=== PATIENT | male | born 1935 | race Caucasian/White ===

== ENCOUNTER 2022-06-06 08:00 | Day surgery (SDC) | payer MEDICARE, BC ==
[~2022-06-06] VITALS: Ht 177.8 cm; Wt 82.1 kg
[2022-06-06 08:35] VITALS: BP 160/109
[2022-06-06] MEDS ORDERED: sodium bicarbonate (8.4%) inj. 150 ML in dextrose 5%-water 1,000 ML IV ONE (08:50)
[2022-06-06] MEDS ORDERED: ROSU40TA22 PO (09:14)
[2022-06-06] MEDS ORDERED: ASPI81TA52 PO (09:14)
[2022-06-06] MEDS ORDERED: METO-395 PO (09:14)
[2022-06-06] MEDS ORDERED: DOCO1CAP11 (09:14)
[2022-06-06] MEDS ORDERED: Vitamin A and D (09:14)
[2022-06-06] MEDS ORDERED: GABA300T25 PO (09:14)
[2022-06-06] MEDS ORDERED: EZET10TA48 PO (09:14)
[2022-06-06] MEDS ORDERED: iohexol 350MG/ML 100ml bottle IV ONE (10:13)
[2022-06-06 10:27] VITALS: BP 144/71
[2022-06-06 12:36] VITALS: BP 130/73
--- NOTE | 2022-06-06 13:40 | NUR ---
Brooke. call from Bisi from [facility] and she gave me results from CT and stated that she tried to get a hold of Dr. Guzman and was not able to. I called ER spoke to Deena alba RN and said that we can put pt into to Bed 2. Transferred pt to ER bed 2 with and friends at bedside. Gave pt info. to IJEOMA Dooley and gave bedside report.
--- NOTE | 2022-06-06 14:00 | NUR ---
VSS, pt is in no distress at this time, pt's and friends at pt's bedside and IJEOMA Dooley present in ER room 2.
== END 2022-06-06 14:00 | disposition critical access hospital, planned readmission (94) ==
LOC: SSTAY O 08:00 → EDSTATUS 09:00 → SSTAY O 14:00
PROVIDERS: ATTEND Internal Medicine Cardiovascular Disease
DX: I71.43 Infrarenal abdominal aortic aneurysm, without rupture (principal); K57.30 Diverticulosis of large intestine without perforation or abscess without bleeding; K40.90 Unilateral inguinal hernia, without obstruction or gangrene, not specified as recurrent; I70.203 Unspecified atherosclerosis of native arteries of extremities, bilateral legs; R16.1 Splenomegaly, not elsewhere classified; K80.20 Calculus of gallbladder without cholecystitis without obstruction; K44.9 Diaphragmatic hernia without obstruction or gangrene; Z79.899 Other long term (current) drug therapy; Z98.890 Other specified postprocedural states
CPT/HCPCS: 75635; J3490; J7030; J7070; Q9967

== ENCOUNTER 2022-06-06 13:58 | Emergency (ER) | payer MEDICARE, BC ==
[~2022-06-06] VITALS: Ht 172.7 cm; Wt 81.8 kg
[~2022-06-06 13:58] MED LIST: ASPI81TA52 PO; DOCO1CAP11; EZET10TA48 PO; GABA300T25 PO; METO-395 PO; ROSU40TA22 PO; Vitamin A and D
[2022-06-06 14:52] LABS: BASOPHILS % (AUTO) 0.5 % (0-1); EOSINOPHILS # (AUTO) 0.1 X10'3 (0-0.9); EOSINOPHILS % (AUTO) 2.2 % (0-6); HEMATOCRIT 42.6 % (42.0-52.0); HEMOGLOBIN 14.5 g/dl (14.0-17.9); LYMPHOCYTES # (AUTO) 1.7 X10'3 (1.1-4.8); LYMPHOCYTES % (AUTO) 34.4 % (21-51); MEAN CORPUSCULAR HEMOGLOBIN 28.9 PG (27.0-31.0); MEAN CORPUSCULAR VOLUME 84.8 FL (78-98); MEAN PLATELET VOLUME 7.4 FL (7.4-10.4); MONOCYTES # (AUTO) 0.7 X10'3 (0-0.9); MONOCYTES % (AUTO) 13.4 % (2-12); NEUTROPHILS # (AUTO) 2.5 X10'3 (1.8-7.7); NEUTROPHILS % (AUTO) 49.5 % (42-75); PLATELET COUNT 139 X10'3 (140-440); RED BLOOD COUNT 5.03 X10'6 (4.70-6.10); RED CELL DISTRIBUTION WIDTH 14.3 % (11.5-14.5); WHITE BLOOD COUNT 5.1 X10'3 (4.5-11.0)
[2022-06-06 15:12] LABS: ALANINE AMINOTRANSFERASE 25 U/L (12-78); ALBUMIN 3.8 G/DL (3.4-5.0); ALBUMIN/GLOBULIN RATIO 1.3 (1.1-1.5); ALKALINE PHOSPHATASE 71 IU/L (46-116); ANION GAP 11 (8-16); ASPARTATE AMINO TRANSFERASE 21 U/L (10-37); BILIRUBIN,TOTAL 0.8 MG/DL (0.1-1.0); BLOOD UREA NITROGEN 12 MG/DL (7-18); BUN/CREATININE RATIO 14.6 (5.4-32.0); CALCIUM 9.1 MG/DL (8.5-10.1); CHLORIDE 104 MMOL/L (99-107); CREATININE 0.82 MG/DL (0.60-1.10); GLUCOSE 91 MG/DL (70-104); POTASSIUM 3.9 MMOL/L (3.5-5.1); SODIUM 140 MMOL/L (135-145); TOTAL CARBON DIOXIDE 24.9 MMOL/L (24-32); TOTAL PROTEIN 6.7 G/DL (6.4-8.2); eGFR 89 ML/MIN
[2022-06-06 15:40] VITALS: BP 156/91
== END 2022-06-06 15:54 | disposition home or self-care (01) ==
LOC: ER 13:58
DX: I71.40 Abdominal aortic aneurysm, without rupture, unspecified (principal); I10 Essential (primary) hypertension; I25.10 Atherosclerotic heart disease of native coronary artery without angina pectoris; E78.00 Pure hypercholesterolemia, unspecified; Z98.890 Other specified postprocedural states; Z72.89 Other problems related to lifestyle; Z79.82 Long term (current) use of aspirin; Z79.899 Other long term (current) drug therapy
CPT/HCPCS: 36415; 71045; 80053; 84484; 85025; 99285

== ENCOUNTER 2022-07-07 08:00 | Inpatient (IN) | payer MEDICARE, BC ==
[2022-07-04 11:15] LABS: BASOPHILS % (AUTO) 0.6 % (0-1); EOSINOPHILS # (AUTO) 0.1 X10'3 (0-0.9); EOSINOPHILS % (AUTO) 2.4 % (0-6); LYMPHOCYTES # (AUTO) 1.3 X10'3 (1.1-4.8); LYMPHOCYTES % (AUTO) 26.2 % (21-51); MEAN CORPUSCULAR HEMOGLOBIN 29.4 PG (27.0-31.0); MEAN CORPUSCULAR HGB CONC 34.6 g/dL (33.0-36.5); MEAN CORPUSCULAR VOLUME 84.8 FL (78-98); MEAN PLATELET VOLUME 7.7 FL (7.4-10.4); MONOCYTES # (AUTO) 0.6 X10'3 (0-0.9); MONOCYTES % (AUTO) 12.3 % (2-12); NEUTROPHILS # (AUTO) 2.9 X10'3 (1.8-7.7); NEUTROPHILS % (AUTO) 58.5 % (42-75); PRE OP HEMATOCRIT 39.6 % (42.0-52.0); PRE OP HEMOGLOBIN 13.7 g/dL (14.0-17.9); PRE OP PLATELET COUNT 119 X10'3 (140-440); RED BLOOD COUNT 4.67 X10'6 (4.70-6.10); RED CELL DISTRIBUTION WIDTH 14.5 % (11.5-14.5)
[2022-07-04 11:25] LABS: PRE OP INR 1.2 INR; PRE OP PROTIME 11.9 SECONDS (9.0-12.0)
[2022-07-04 11:26] LABS: ALBUMIN 3.7 G/DL (3.4-5.0); ALBUMIN/GLOBULIN RATIO 1.4 (1.1-1.5); ALKALINE PHOSPHATASE 67 IU/L (46-116); BLOOD UREA NITROGEN 13 MG/DL (7-18); BUN/CREATININE RATIO 14.8 (5.4-32.0); CALCIUM 8.9 MG/DL (8.5-10.1); CHLORIDE 103 MMOL/L (99-107); CREATININE 0.88 MG/DL (0.60-1.10); PRE OP ALT 28 U/L (30-65); PRE OP ANION GAP 5 (8-16); PRE OP AST 26 U/L (10-37); PRE OP BILIRUB, TOTAL 0.9 MG/DL (0.0-1.0); PRE OP GLUCOSE 93 MG/DL (70-104); PRE OP POTASSIUM 4.3 MMOL/L (3.4-5.1); PRE OP SODIUM 136 MMOL/L (135-145); TOTAL CARBON DIOXIDE 27.7 MMOL/L (24-32); TOTAL PROTEIN 6.3 G/DL (6.4-8.2); eGFR 82 ML/MIN
[2022-07-07] VITALS (26 sets, daily range): BP systolic 114–221; BP diastolic 62–131
[~2022-07-07] VITALS: Ht 177.8 cm; Wt 79.1 kg
[~2022-07-07 08:00] MED LIST changes: +CHOL100017 PO; +DOCUMENT DATE & TIME OF BETA-BLOCKER PO ONE; -Vitamin A and D; +ceFAZolin inj. 2,000 MG in dextrose 5%-water 100 ML IV ONE; +famotidine 20mg tablet PO ONE; +metoprolol tartrate 12.5mg (1/2 tablet) PO ONE; +ringers solution, lacted 1,000 ML IV SCH
[2022-07-07] MEDS ORDERED: iohexol 350MG/ML 100ml bottle IV ONE (08:17)
[2022-07-07] MEDS ORDERED: heparin 10,000 units/1 ML INJ ONE (13:35)
[2022-07-07] MEDS ORDERED: midazolam 1 mg/ML 2ml injection ONE (13:44)
[2022-07-07] MEDS ORDERED: fentaNYL/PF 50MCG/1 ML 2ML syringe ONE ×2 (13:44→16:03)
[2022-07-07] MEDS ORDERED: rocuronium 10mg/ml inj IV ONE (13:44)
[2022-07-07] MEDS ORDERED: propofol inj 20 ML IV ONE (13:44)
[2022-07-07] MEDS ORDERED: ondansetron/PF 4mg/2ml inj IV PRN ×2 (14:10→18:20)
[2022-07-07] MEDS ORDERED: meperidine/PF 25mg/ml syringe IV PRN ×3 (14:10)
[2022-07-07] MEDS ORDERED: proCHLORperazine 10 MG/2 ml inj IV PRN (14:10)
[2022-07-07] MEDS ORDERED: ringers solution, lacted 1,000 ML IV SCH (14:10)
[2022-07-07] MEDS ORDERED: dexamethasone sod phosphate 4mg/ml inj. ONE (14:55)
[2022-07-07] MEDS: iohexol 300 MG/1 ML 50ml polymer ONE ×2 (14:58→17:54)
[2022-07-07] MEDS ORDERED: iohexol 300 MG/1 ML 50ml polymer ONE (15:00)
[2022-07-07] MEDS ORDERED: ondansetron/PF 4mg/2ml inj ONE (17:48)
[2022-07-07] MEDS ORDERED: labetalol 20mg/4ml (5mg/ml) syringe IV ONE (17:48)
--- NOTE | 2022-07-07 18:15 | NUR ---
PT ARRIVED TO VIA BED ACCOMPANIED BY DR. LAWSON-ANESTHESIA REPORT GIVEN, PT CHITINA, AWAKE AND TRYING TO MOVE AROUND IN BED, ART LINE AND BP DIFFICULT TO GET ACCURATE READING, FEMSTOP TO LEFT GT
[2022-07-07] MEDS: morphine 2 MG/ML inj. syringe IV PRN ×2 (18:16→23:03)
--- NOTE | 2022-07-07 18:16 | NUR ---
CONT. FEMSTOP TO LEFT GROIN-NO BLEEDING NOTED PRESSURE AT 55, NO PALPABLE PULSE IN FOOT, BLE COLD AND MOTTLED COLOR NOTED FROM WAIST DOWN WITH NOTED INCREASE BRUISING TO LEFT SIDE AROUND FEMSTOP, WITH 3 NURSES ATTEMPTING TO KEEP PT SAFE, GIVEN MORPHINE FOR PAIN, ATTEMPTING TO FINE DOPPLER PULSES IN BLE-SUCCESSFUL ONLY ON THE RIGHT.
[2022-07-07] MEDS ORDERED: magnesium hydroxide 30ml (MOM) UD suspension PO PRN (18:20)
[2022-07-07] MEDS ORDERED: bisacodyl 10mg suppository rectal RC PRN (18:20)
[2022-07-07] MEDS ORDERED: HYDROcodone/acetaminophen 10/325mg tab PO PRN ×2 (18:20)
[2022-07-07] MEDS ORDERED: mineral oil 133ml enema RC PRN (18:20)
[2022-07-07] MEDS ORDERED: sodium chloride 0.45% 1,000 ML IV SCH (18:20)
[2022-07-07] MEDS ORDERED: acetaminophen 325mg tablet PO PRN ×2 (18:20)
[2022-07-07] MEDS: morphine 4 MG/ML inj SYRINge IV PRN ×2 (18:29→20:35)
[2022-07-07] MEDS ORDERED: acetaminophen 1,000mg/100ml IV 100 ML IV ONE (18:40)
[2022-07-07] MEDS ORDERED: hydrALAZINE 20mg/ml inj. IV PRN ×2 (18:45→21:25)
[2022-07-07] MEDS ORDERED: cloNIDine 0.1 mg tablet PO ONE (19:21)
--- NOTE | 2022-07-07 20:30 | NUR ---
SPOKE WITH TAMIKA-RECEIVED ORDERS FOR HYDRALAZINE AND TOLD TO CALL [facility] REGARDING LACK OF PULSE, TYLENOL AND HYDRALAZINE GIVEN. [facility] CALLED- AWARE, EXPLAINED THAT PULSE NOT EXPECTED IN RIGHT FOOT-DID REITERATE TO THAT THE LEFT LEG IS COLD, PAINFUL, AND MOTTLED-DR. PERALTA TO COME ASSESS.
[2022-07-07] MEDS ORDERED: atorvastatin 10mg tablet PO SCH (21:00)
--- NOTE | 2022-07-07 21:00 | NUR ---
PICK IN TO ASSESS PT, FEMSTOP REMOVED BY DR-NO BLEEDING NOTED, ART LINE REMOVED BY DR-VASC BAND APPLIED, DR AWARE OF MOTTLED COLOR, LACK OF PERFUSION TO LEG AND PAIN-NO NEW ORDERS GIVEN EXCEPT CLONIDINE FOR BP AND TRANSFER TO ICU WITH LABS IN AM. BD STILL ELEVATED, PAIN STILL 7/10 WITH PT MOVING IN BED TO GET COMFORTABLE, STILL USING MORPHINE WITH LITTLE RESULT.
--- NOTE | 2022-07-07 21:45 | NUR ---
PT RESTING QUIETLY, BUT STILL HAVING ELEVATED BP'S, ELEVATED RR, GOOD URINE OUTPUT VIA F/C, MOTTLED SKIN UNCHANGED WITH PAIN STILL IN LEFT LEG, NO BLEEDING NOTED AT INSERTION SITES, PT TAKEN TO CICU WITH BELONGINGS-BEDSIDE REPORT GIVEN TO MAKI RAPHAEL-ALL QUESTIONS ANSWERED
[2022-07-07] MEDS ORDERED: nitroGLYCERIN-Tridil 50MG/D5W 250 ML IV PRN (22:30)
[2022-07-07] MEDS ORDERED: morphine 2 MG/ML inj. syringe IV PRN ×2 (22:30)
[2022-07-07] MEDS ORDERED: GABA300C PO (22:46)
--- NOTE | 2022-07-07 23:00 | NUR ---
Patient in room CICU 2008. I have received report from manufacturing applications engineer and had the opportunity to ask questions and assume patient care. Pt placed on our monitor and oriented to the room, call light, and plan of care. Pt's BP still elevated with no pulse present in left foot and painful. Dr. Guzman notified, received orders for nitro drip for BP and morphine for pain. Pt's dentures placed in his mouth and he is able to speak more clearly.
[2022-07-07] MEDS: sennosides/docusate sodium tablet PO SCH (23:02)
[2022-07-07] MEDS: normal saline 1000ml 1,000 ML IV SCH (23:03)
[2022-07-08] VITALS (29 sets, daily range): BP systolic 90–155; BP diastolic 55–95
[2022-07-08] MEDS: ceFAZolin/D5W- 1GM premix 50 ML IV SCH ×3 (00:28→15:11)
--- NOTE | 2022-07-08 06:00 | NUR ---
Patient in room CICU 2008. I have received report from Deena RAPHAEL and had the opportunity to ask questions and assume patient care.
[2022-07-08 06:27] LABS: BASOPHILS % (AUTO) 0.2 % (0-1); EOSINOPHILS % (AUTO) 0.1 % (0-6); HEMATOCRIT 37.5 % (42.0-52.0); HEMOGLOBIN 12.9 g/dl (14.0-17.9); LYMPHOCYTES # (AUTO) 0.5 X10'3 (1.1-4.8); LYMPHOCYTES % (AUTO) 5.5 % (21-51); MEAN CORPUSCULAR HEMOGLOBIN 29.6 PG (27.0-31.0); MEAN CORPUSCULAR HGB CONC 34.3 g/dL (33.0-36.5); MEAN CORPUSCULAR VOLUME 86.1 FL (78-98); MEAN PLATELET VOLUME 8.4 FL (7.4-10.4); MONOCYTES # (AUTO) 0.7 X10'3 (0-0.9); MONOCYTES % (AUTO) 8.6 % (2-12); NEUTROPHILS % (AUTO) 85.6 % (42-75); RED BLOOD COUNT 4.36 X10'6 (4.70-6.10); RED CELL DISTRIBUTION WIDTH 15.2 % (11.5-14.5); WHITE BLOOD COUNT 8.2 X10'3 (4.5-11.0)
[2022-07-08 06:47] LABS: ALANINE AMINOTRANSFERASE 177 U/L (12-78); ALBUMIN 3.3 G/DL (3.4-5.0); ALBUMIN/GLOBULIN RATIO 1.2 (1.1-1.5); ALKALINE PHOSPHATASE 64 IU/L (46-116); ANION GAP 20 (8-16); ASPARTATE AMINO TRANSFERASE 478 U/L (10-37); BILIRUBIN,TOTAL 0.8 MG/DL (0.1-1.0); BLOOD UREA NITROGEN 33 MG/DL (7-18); CHLORIDE 99 MMOL/L (99-107); CREATININE 2.36 MG/DL (0.60-1.10); GLUCOSE 265 MG/DL (70-104); MAGNESIUM 2.4 MG/DL (1.5-2.4); POTASSIUM 5.7 MMOL/L (3.5-5.1); SODIUM 134 MMOL/L (135-145); TOTAL CARBON DIOXIDE 15.2 MMOL/L (24-32); TOTAL PROTEIN 6.1 G/DL (6.4-8.2); eGFR 26 ML/MIN
--- NOTE | 2022-07-08 07:01 | NUR ---
Problems reprioritized. Patient report given, questions answered & plan of care reviewed with Mary RAPHAEL.
[2022-07-08] MEDS: sodium polystyrene sulfonate 15gm/60ml oral suspension PO ONE ×2 (07:20→08:52)
[2022-07-08] MEDS: normal saline 1000ml 1,000 ML IV SCH ×4 (07:20→23:23)
--- NOTE | 2022-07-08 07:31 | NUR ---
Dr. Guzman called regarding no pulse to left leg, mottled, cold, numbness and weak doppler pulse to right leg. ordered Steven arterial vascular studies. Also informed of K 5.7, Cr. 2.36, BUN 33, ordered Kayexalate.
[2022-07-08 07:57] LABS: PHOSPHORUS 9.8 MG/DL (2.3-4.5)
[2022-07-08] MEDS ORDERED: non-formulary drug (Gabapentin (Gralise) 3 TAB) PO SCH (08:00)
[2022-07-08] MEDS: sennosides/docusate sodium tablet PO SCH ×2 (08:00→20:20)
[2022-07-08] MEDS: aspirin 81mg, enteric-coated 1 TAB TABLET.DR PO SCH ×2 (08:00→08:56)
[2022-07-08 08:17] LABS: PLATELET COUNT 79 X10'3 (140-440)
[2022-07-08 08:19] LABS: ANISOCYTOSIS 1+; PLATELET ESTIMATE DECREASED; TOTAL CELLS COUNTED 100
[2022-07-08 08:20] LABS: ACANTHOCYTES FEW; BURR CELLS 1+
[2022-07-08] MEDS: aspirin 81mg tab.chew PO SCH (08:30)
[2022-07-08] MEDS: gabapentin 300mg capsule PO SCH ×2 (08:52→10:03)
[2022-07-08] MEDS: cholecalciferol (vitamin D3) 1,000 unit (25mcg) tablet PO SCH ×2 (08:52→10:03)
[2022-07-08] MEDS: ezetimibe 10mg tablet PO SCH ×2 (08:54→10:03)
[2022-07-08] MEDS ORDERED: furosemide inj 100 MG in normal saline 100ml IV soln 90 ML IV SCH (09:25)
[2022-07-08 09:36] LABS: ABG BASE EXCESS -15.6 mmol/L (-2.0-2.0); ABG HCO3 9.6 mmol/L (22.0-26.0); ABG OXYGEN SATURATION 94.1 % (94-97); ABG PCO2 (T) 20.6 mmHg (35.0-48.0); ABG PO2 (T) 67.6 mmHg (75.0-100.0); FCOHb 0.1 % (0.0-3.9); FLOW 4 L/min; FMetHb 0.2 % (0.0-1.5); FO2Hb 93.8 % (94-97); PATIENT TEMPERATURE 35.1; TOTAL HEMOGLOBIN 13.2 G/dl (14.0-17.9)
--- NOTE | 2022-07-08 09:54 | NUR ---
Dr. Guzman in to see patient, spoke with also. MD informed of ABG results and that urine output has decreased to 10ml/hr. MD to consult with adult basic education teacher/nephrology. MD ordered lasix drip and increase IVF to 200ml/hr. MD aware of creatinine of 2.36.
[2022-07-08] MEDS ORDERED: dexmedetomidin/NS 400mcg/100ml 100 ML IV SCH (10:05)
[2022-07-08] MEDS ORDERED: DEXMEDETOMIDINE IN 0.9 % NACL 50 ML IV SCH (10:09)
--- NOTE | 2022-07-08 10:19 | NUR ---
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 Pt would benefit from high protein diet ed once appropriate post-op prior to discharge. Addendum: 07/08/22 at [address] Amended: Links added.
[2022-07-08 11:09] LABS: ALANINE AMINOTRANSFERASE 237 U/L (12-78); ALBUMIN 3.1 G/DL (3.4-5.0); ALBUMIN/GLOBULIN RATIO 1.1 (1.1-1.5); ALKALINE PHOSPHATASE 66 IU/L (46-116); ANION GAP 18 (8-16); ASPARTATE AMINO TRANSFERASE 731 U/L (10-37); BILIRUBIN,TOTAL 0.6 MG/DL (0.1-1.0); BLOOD UREA NITROGEN 40 MG/DL (7-18); BUN/CREATININE RATIO 14.2 (5.4-32.0); CALCIUM 7.5 MG/DL (8.5-10.1); CHLORIDE 99 MMOL/L (99-107); CREATININE 2.81 MG/DL (0.60-1.10); GLUCOSE 205 MG/DL (70-104); MAGNESIUM 2.5 MG/DL (1.5-2.4); POTASSIUM 5.9 MMOL/L (3.5-5.1); SODIUM 132 MMOL/L (135-145); TOTAL PROTEIN 5.8 G/DL (6.4-8.2); eGFR 22 ML/MIN
[2022-07-08 11:10] LABS: PHOSPHORUS 10.2 MG/DL (2.3-4.5)
[2022-07-08] MEDS ORDERED: sodium bicarbonate (8.4%) 1 mEq/ml syringe IV ONE (11:25)
[2022-07-08] MEDS ORDERED: sodium bicarbonate (8.4%) inj. 150 MEQ in sodium chloride 0.45% 850 ML IV SCH (11:25)
[2022-07-08] MEDS ORDERED: heparin 1,000 units/ml 10ml inj HE ONE ×4 (11:50→13:30)
[2022-07-08] MEDS: sodium bicarbonate (8.4%) inj. 150 MEQ in sodium chloride 0.45% 1,000 ML IV SCH ×2 (12:00→19:11)
[2022-07-08] MEDS ORDERED: normal saline 1000ml 1,000 ML IV ONE ×2 (12:00)
[2022-07-08] MEDS ORDERED: propofol 1000mg/100ml bottle 100 ML IV SCH (12:15)
[2022-07-08] MEDS ORDERED: fentaNYL/PF 50MCG/1 ML 2ML syringe IV PRN (12:15)
--- NOTE | 2022-07-08 12:15 | NUR ---
Dr. Jasso at bedside placed left subclavian central line, right subclavian Marvin, Left brachial arterial line, and intubated patient at 1215. 30mg of Etomidate and 50mg of Roceronium given prior to intubation. MD also ordered a 100mcg fentanyl bolus and then fentanyl and propofol drip for sedation. MD aware of lactic of 7.3, Cr 2.36. Dr. Jasso consulted with nephrology Dr. Peng. Dr. Peng ordered hemodialysis for today. MD aware of low urine output of 10ml/hr.
[2022-07-08] MEDS ORDERED: propofol 1000mg/100ml bottle 100 ML IV ONE (12:22)
[2022-07-08] MEDS ORDERED: NORepinephrine 8mg/ 250ml NS 250 ML IV ONE (12:23)
[2022-07-08] MEDS: NORepinephrine 8mg/ 250ml NS 250 ML IV SCH ×2 (12:47→21:18)
[2022-07-08] MEDS: FENTANYL-0.9 % NACL/PF 100 ML IV PRN (12:47)
[2022-07-08] MEDS ORDERED: albumin (human) 25% 100ml IV 100 ML IV PRN (13:25)
[2022-07-08 13:26] LABS: ABG BASE EXCESS -10.6 mmol/L (-2.0-2.0); ABG HCO3 16.3 mmol/L (22.0-26.0); ABG PCO2 (T) 37.5 mmHg (35.0-48.0); ABG PO2 (T) 65.2 mmHg (75.0-100.0); FCOHb 0.3 % (0.0-3.9); FMetHb 0.3 % (0.0-1.5); FO2Hb 91.4 % (94-97); PATIENT TEMPERATURE 35.6; PEEP 5 cm H2O; RESPIRATORY RATE 14 b/min; TIDAL VOLUME 500 mL; TOTAL HEMOGLOBIN 9.9 G/dl (14.0-17.9)
[2022-07-08] MEDS ORDERED: etomidate 2mg/ml inj. ONE (14:00)
[2022-07-08] MEDS ORDERED: rocuronium 10mg/ml inj IV ONE (14:00)
[2022-07-08] MEDS ORDERED: pantoprazole 40mg IV 80 MG in normal saline 100ml IV soln 100 ML IV ONE (15:15)
[2022-07-08] MEDS ORDERED: pantoprazole 40mg IV 80 MG in normal saline 100ml IV soln 100 ML IV SCH (15:15)
[2022-07-08 15:40] LABS: ALANINE AMINOTRANSFERASE 299 U/L (12-78); ALBUMIN 2.3 G/DL (3.4-5.0); ALBUMIN/GLOBULIN RATIO 1.1 (1.1-1.5); ALKALINE PHOSPHATASE 60 IU/L (46-116); ANION GAP 11 (8-16); ASPARTATE AMINO TRANSFERASE 944 U/L (10-37); BILIRUBIN,TOTAL 0.5 MG/DL (0.1-1.0); BLOOD UREA NITROGEN 43 MG/DL (7-18); BUN/CREATININE RATIO 16.8 (5.4-32.0); CALCIUM 6.1 MG/DL (8.5-10.1); CHLORIDE 106 MMOL/L (99-107); CREATININE 2.56 MG/DL (0.60-1.10); GLUCOSE 119 MG/DL (70-104); MAGNESIUM 2.2 MG/DL (1.5-2.4); PHOSPHORUS 8.8 MG/DL (2.3-4.5); SODIUM 136 MMOL/L (135-145); TOTAL CARBON DIOXIDE 19.2 MMOL/L (24-32); TOTAL PROTEIN 4.4 G/DL (6.4-8.2); eGFR 24 ML/MIN
[2022-07-08] MEDS ORDERED: vancomycin 1,750 MG in NS 350ml IV soln IV ONE ×2 (16:15→20:00)
--- NOTE | 2022-07-08 18:26 | NUR ---
Problems reprioritized. Patient report given, questions answered & plan of care reviewed with Mireille RAPHAEL.
--- NOTE | 2022-07-08 18:30 | NUR ---
Patient in room CICU 2008. I have received report from Mary RAPHAEL and had the opportunity to ask questions and assume patient care.
[2022-07-08] MEDS ORDERED: amiodarone 150mg/dext, iso-os 100 ML IV ONE ×2 (18:48→18:50)
[2022-07-08] MEDS: amiodarone/D5 360MG/200ML BAG 200 ML IV SCH (18:54)
[2022-07-08] MEDS ORDERED: VANCOMYCIN LEVEL IV ONE (19:30)
[2022-07-08 20:39] LABS: ALBUMIN 1.9 G/DL (3.4-5.0); ANION GAP 16 (8-16); BLOOD UREA NITROGEN 20 MG/DL (7-18); BUN/CREATININE RATIO 15.2 (5.4-32.0); CALCIUM 6.5 MG/DL (8.5-10.1); CHLORIDE 105 MMOL/L (99-107); CREATININE 1.32 MG/DL (0.60-1.10); GLUCOSE 145 MG/DL (70-104); POTASSIUM 4.2 MMOL/L (3.5-5.1); SODIUM 142 MMOL/L (135-145); TOTAL CARBON DIOXIDE 20.8 MMOL/L (24-32); eGFR 51 ML/MIN
[2022-07-08] MEDS ORDERED: atorvastatin 20mg tablet PO SCH (21:00)
[2022-07-08] MEDS ORDERED: metoprolol succinate 25mg (24-HOUR) SR. Tablet PO SCH (21:00)
[2022-07-08] MEDS ORDERED: PED IV ONE (21:15)
[2022-07-08] MEDS ORDERED: NORMAL SALINE IV ONE (21:15)
[2022-07-08] MEDS ORDERED: SODIUM BICARB IV ONE (21:15)
[2022-07-08] MEDS ORDERED: sodium bicarbonate (8.4%) inj. 1 MEQ/ML ML IV ONE (21:30)
[2022-07-08] MEDS: piperacillin/tazo 3.375gm/50ml 50 ML IV SCH (22:48)
[2022-07-09] VITALS (19 sets, daily range): BP systolic 68–119; BP diastolic 33–77
[2022-07-09] MEDS: ceFAZolin/D5W- 1GM premix 50 ML IV SCH ×2 (00:12→07:24)
[2022-07-09] MEDS: sodium bicarbonate (8.4%) inj. 150 MEQ in sodium chloride 0.45% 1,000 ML IV SCH ×2 (00:57→06:57)
[2022-07-09] MEDS: amiodarone/D5 360MG/200ML BAG 200 ML IV SCH ×2 (00:58→06:58)
[2022-07-09 02:12] LABS: BASOPHILS % (AUTO) 0.1 % (0-1); HEMATOCRIT 22.6 % (42.0-52.0); HEMOGLOBIN 7.7 g/dl (14.0-17.9); MONOCYTES # (AUTO) 0.8 X10'3 (0-0.9); PLATELET COUNT 58 X10'3 (140-440)
[2022-07-09 02:15] LABS: EOSINOPHILS % (AUTO) 0.4 % (0-6); LYMPHOCYTES # (AUTO) 0.6 X10'3 (1.1-4.8); LYMPHOCYTES % (AUTO) 9.2 % (21-51); MEAN CORPUSCULAR HEMOGLOBIN 29.2 PG (27.0-31.0); MEAN CORPUSCULAR HGB CONC 34.2 g/dL (33.0-36.5); MEAN CORPUSCULAR VOLUME 85.5 FL (78-98); MEAN PLATELET VOLUME 9.3 FL (7.4-10.4); MONOCYTES % (AUTO) 13.1 % (2-12); NEUTROPHILS # (AUTO) 4.8 X10'3 (1.8-7.7); NEUTROPHILS % (AUTO) 77.2 % (42-75); RED BLOOD COUNT 2.65 X10'6 (4.70-6.10); RED CELL DISTRIBUTION WIDTH 15.3 % (11.5-14.5); WHITE BLOOD COUNT 6.2 X10'3 (4.5-11.0)
[2022-07-09 02:38] LABS: ABG BASE EXCESS -4.1 mmol/L (-2.0-2.0); ABG HCO3 20.4 mmol/L (22.0-26.0); ABG OXYGEN SATURATION 95.7 % (94-97); ABG PCO2 (T) 34.2 mmHg (35.0-48.0); ABG PO2 (T) 86.3 mmHg (75.0-100.0); FCOHb 0.3 % (0.0-3.9); FMetHb 0.2 % (0.0-1.5); FO2Hb 95.2 % (94-97); PATIENT TEMPERATURE 36.7; PEEP 5 cm H2O; RESPIRATORY RATE 14 b/min; TIDAL VOLUME 500 mL; TOTAL HEMOGLOBIN 8.6 G/dl (14.0-17.9)
[2022-07-09 02:44] LABS: ALANINE AMINOTRANSFERASE 448 U/L (12-78); ALBUMIN 1.6 G/DL (3.4-5.0); ALBUMIN/GLOBULIN RATIO 0.9 (1.1-1.5); ALKALINE PHOSPHATASE 62 IU/L (46-116); ANION GAP 19 (8-16); BILIRUBIN,TOTAL 0.7 MG/DL (0.1-1.0); BLOOD UREA NITROGEN 30 MG/DL (7-18); BUN/CREATININE RATIO 12.7 (5.4-32.0); CALCIUM 6.1 MG/DL (8.5-10.1); CHLORIDE 103 MMOL/L (99-107); CREATININE 2.37 MG/DL (0.60-1.10); GLUCOSE 90 MG/DL (70-104); PHOSPHORUS 7.9 MG/DL (2.3-4.5); POTASSIUM 5.3 MMOL/L (3.5-5.1); SODIUM 143 MMOL/L (135-145); TOTAL CARBON DIOXIDE 21.1 MMOL/L (24-32); TOTAL PROTEIN 3.3 G/DL (6.4-8.2); TRIGLYCERIDES 85 MG/DL (20-135); eGFR 26 ML/MIN
[2022-07-09 02:45] LABS: ASPARTATE AMINO TRANSFERASE 1150 U/L (10-37)
[2022-07-09 02:49] LABS: NUCLEATED RED BLOOD CELLS 1 /100WBC (0-0); TOTAL CELLS COUNTED 100
[2022-07-09 02:51] LABS: PLATELET ESTIMATE DECREASED
[2022-07-09 02:52] LABS: BURR CELLS 1+
[2022-07-09] MEDS: NORepinephrine 8mg/ 250ml NS 250 ML IV SCH ×2 (03:41→08:32)
[2022-07-09] MEDS: normal saline 1000ml 1,000 ML IV SCH ×2 (04:23→09:23)
[2022-07-09] MEDS: FENTANYL-0.9 % NACL/PF 100 ML IV PRN (04:36)
--- NOTE | 2022-07-09 06:30 | NUR ---
Patient in room CICU 2008. I have received report from IJEOMA Kendrick and had the opportunity to ask questions and assume patient care.
[2022-07-09 07:35] LABS: ABG BASE EXCESS -10.6 mmol/L (-2.0-2.0); ABG HCO3 15.6 mmol/L (22.0-26.0); ABG OXYGEN SATURATION 92.4 % (94-97); ABG PCO2 (T) 34.9 mmHg (35.0-48.0); ABG PO2 (T) 73.6 mmHg (75.0-100.0); FCOHb 0.3 % (0.0-3.9); FMetHb 0.2 % (0.0-1.5); FO2Hb 91.9 % (94-97); PATIENT TEMPERATURE 36.2; PEEP 5 cm H2O; RESPIRATORY RATE 14 b/min; TIDAL VOLUME 500 mL; TOTAL HEMOGLOBIN 7.8 G/dl (14.0-17.9)
[2022-07-09] MEDS ORDERED: pantoprazole 40MG/NS 100ML BAG 100 ML IV SCH (08:00)
[2022-07-09] MEDS ORDERED: gabapentin 300mg capsule PO SCH (08:00)
[2022-07-09] MEDS: cholecalciferol (vitamin D3) 1,000 unit (25mcg) tablet PO SCH (08:00)
[2022-07-09] MEDS: ezetimibe 10mg tablet PO SCH (08:00)
[2022-07-09] MEDS: sennosides/docusate sodium tablet PO SCH (08:00)
[2022-07-09] MEDS ORDERED: albumin (human) 25% 100ml IV 100 ML IV SCH (08:00)
[2022-07-09] MEDS: piperacillin/tazo 3.375gm/50ml 50 ML IV SCH (08:20)
[2022-07-09] MEDS: aspirin 81mg tab.chew PO SCH (08:30)
[2022-07-09] MEDS ORDERED: NORepinephrine inj. 32 MG in normal saline 250ml IV soln 218 ML IV SCH (08:40)
[2022-07-09] MEDS ORDERED: dextrose 50%-water 50ml dispensing syringe IV ONE (09:21)
[2022-07-09] MEDS ORDERED: vasopressin inj. 40 UNIT in dextrose 5%-water 50ml 38 ML IV SCH (09:40)
[2022-07-09 09:43] LABS: BASOPHILS % (AUTO) 0.1 % (0-1)
[2022-07-09 09:45] LABS: EOSINOPHILS % (AUTO) 0.1 % (0-6); LYMPHOCYTES # (AUTO) 0.8 X10'3 (1.1-4.8); LYMPHOCYTES % (AUTO) 11.3 % (21-51); MEAN CORPUSCULAR HEMOGLOBIN 29.8 PG (27.0-31.0); MEAN CORPUSCULAR HGB CONC 33.4 g/dL (33.0-36.5); MEAN CORPUSCULAR VOLUME 89.4 FL (78-98); MONOCYTES # (AUTO) 0.6 X10'3 (0-0.9); MONOCYTES % (AUTO) 8.5 % (2-12); NEUTROPHILS # (AUTO) 5.7 X10'3 (1.8-7.7); PLATELET COUNT 69 X10'3 (140-440); RED BLOOD COUNT 2.29 X10'6 (4.70-6.10); RED CELL DISTRIBUTION WIDTH 16.2 % (11.5-14.5); WHITE BLOOD COUNT 7.1 X10'3 (4.5-11.0)
[2022-07-09 09:47] LABS: BILIRUBIN,TOTAL 1.1 MG/DL (0.1-1.0); CHLORIDE 102 MMOL/L (99-107); CREATININE 2.94 MG/DL (0.60-1.10); TOTAL PROTEIN 2.9 G/DL (6.4-8.2); eGFR 20 ML/MIN
[2022-07-09] MEDS ORDERED: sodium phosphate inj. 30 MMOL in normal saline 250ml IV soln 250 ML IV PRN (10:00)
[2022-07-09] MEDS ORDERED: magnesium 4gm in 100ml NS 100 ML IV PRN (10:00)
[2022-07-09] MEDS ORDERED: potassium Cl 40MEQ/270ML bag 270 ML IV PRN (10:00)
[2022-07-09] MEDS ORDERED: calcium chloride inj. 1,000 MG in normal saline 100ml IV soln 100 ML IV PRN (10:00)
--- NOTE | 2022-07-09 10:00 | NUR ---
Called Dr. Jasso about patient's blood pressure steadily dropping and increased need of Levophed. He stated okay to switch to quad strength levo and add vasopressin. Called Dr. Peng about the increased pressor use and the probable need for CVVH. He agreed. CVVH to be started.
[2022-07-09 10:04] LABS: HEMATOCRIT 20.5 % (42.0-52.0); HEMOGLOBIN 6.8 g/dl (14.0-17.9)
[2022-07-09 10:19] LABS: ALANINE AMINOTRANSFERASE 721 U/L (12-78); ALBUMIN 1.4 G/DL (3.4-5.0); ALBUMIN/GLOBULIN RATIO 0.9 (1.1-1.5); ALKALINE PHOSPHATASE 72 IU/L (46-116); ANION GAP 26 (8-16); BLOOD UREA NITROGEN 34 MG/DL (7-18); BUN/CREATININE RATIO 11.6 (5.4-32.0); MAGNESIUM 2.5 MG/DL (1.5-2.4); SODIUM 143 MMOL/L (135-145); TOTAL CARBON DIOXIDE 15.1 MMOL/L (24-32)
[2022-07-09 10:20] LABS: ASPARTATE AMINO TRANSFERASE 1747 U/L (10-37); PHOSPHORUS 11.9 MG/DL (2.3-4.5)
--- NOTE | 2022-07-09 11:04 | NUR ---
Called Dr. Jasso because the patient's blood pressure is still dropping and is now maxed out on Vasopressin and quad strength Levophed. He gave an order to start Hydrocortisone 100mg Q8H with the first dose given now. stated he would be bedside in about thirty minutes. The decision was made to hold off on starting CVVH until Dr. Jasso is bedside due to the low H/H and the way that patient responded to hemodialysis yesterday. Addendum: 07/09/22 at 1137 by Laura Casey RN At this time also addressed the critical LA 20, Hgb 6.8, Hct 20.5, K 7.4, Ca 5.7, no new orders
--- NOTE | 2022-07-09 11:31 | NUR ---
Dr. Peng bedside and spoke with the family about the likelihood that the patient will not survive. Family stated an understanding. Addendum: 07/09/22 at 1137 by Laura Casey RN Dr. Peng ordered x1 unit of blood for the patient.
[2022-07-09] MEDS: bicarb dialysis sol 2K+/3 Ca2+ 5,000 ML HE SCH ×2 (11:39→11:42)
[2022-07-09] MEDS ORDERED: vancomycin/NS 1 GM ADD-VANTAGE 250 ML IV PRN (11:55)
[2022-07-09] MEDS ORDERED: morphine 4 MG/ML inj SYRINge IV PRN (11:55)
--- NOTE | 2022-07-09 12:02 | NUR ---
Dr. Jasso talked with the family bedside. The opted to make the patient DNR with comfort care.
--- NOTE | 2022-07-09 12:10 | NUR ---
Patient extubated at 1205.
--- NOTE | 2022-07-09 12:55 | NUR ---
RN IS TO DOCUMENT YES TO ALL APPLICABLE AREAS Pronouncement of : 1. Time Physician Notified: 1223 2. Date of : 07/09/22 3. Time of : 1223 4. DNR/Withdraw life support documented: Y 5. Monitor strip has been placed on chart: Y 6. Assessment process is of one-minute duration and includes following criteria: a) Patient is unresponsive to all stimuli: Y b) Pupils fixed and non-reactive: Y c) Auscultation of precordium reveals absence of heart tones: Y d) Auscultation of lungs reveals absence of breath sounds: Y e) Absence of blood pressure / all vital signs: Y f) QRS complexes are not present on monitor / EKG strip: Y g) Pacer spikes without capture: N/A 4. Comments:
--- NOTE | 2022-07-09 13:06 | NUR ---
Patient's took all of patient belongings.
--- NOTE | 2022-07-09 13:09 | NUR ---
Donor network ruled patient out. [facility] in [place] called. Awaiting time of arrival.
[2022-07-09] MEDS ORDERED: mineral oil/petrolatum ophthal oint EACHEYE SCH (14:00)
--- NOTE | 2022-07-09 16:54 | NUR ---
[facility] just called and stated that they will be here in 40 minutes to poultry picking machine tender the patient.
[2022-07-09] MEDS ORDERED: vancomycin inj 500 MG in normal saline 100ml IV soln 100 ML IV SCH (20:00)
[2022-07-10] MEDS ORDERED: VANCOMYCIN LEVEL IV SCH (03:00)
[2022-07-10 06:29] LABS: GLUCOSE 20 MG/DL (70-104); POTASSIUM 7.4 MMOL/L (3.5-5.1)
[2022-07-10 06:30] LABS: CALCIUM 5.7 MG/DL (8.5-10.1)
== END 2022-07-09 19:37 | DRG 299 ==
LOC: PAS IN 09:17 → CICU 2S 21:32
PROVIDERS: ADMIT Thoracic Surgery (Cardiothoracic Vascular Surgery); ATTEND Thoracic Surgery (Cardiothoracic Vascular Surgery)
PROC: B4101ZZ Fluoroscopy of Abdominal Aorta using Low Osmolar Contrast (ICD-10-PCS; 2022-07-07)
PROC: 5A1935Z Respiratory Ventilation, Less than 24 Consecutive Hours (ICD-10-PCS; principal; 2022-07-08)
PROC: 0BH17EZ Insertion of Endotracheal Airway into Trachea, Via Natural or Artificial Opening (ICD-10-PCS; 2022-07-08)
PROC: 02HV33Z Insertion of Infusion Device into Superior Vena Cava, Percutaneous Approach (ICD-10-PCS; 2022-07-08)
PROC: 02HV33Z Insertion of Infusion Device into Superior Vena Cava, Percutaneous Approach (ICD-10-PCS; 2022-07-08)
PROC: B548ZZA Ultrasonography of Superior Vena Cava, Guidance (ICD-10-PCS; 2022-07-08)
PROC: 03HY32Z Insertion of Monitoring Device into Upper Artery, Percutaneous Approach (ICD-10-PCS; 2022-07-08)
PROC: B34JZZZ Ultrasonography of Left Upper Extremity Arteries (ICD-10-PCS; 2022-07-08)
PROC: 5A1D70Z Performance of Urinary Filtration, Intermittent, Less than 6 Hours Per Day (ICD-10-PCS; 2022-07-08)
PROC: 5A1D70Z Performance of Urinary Filtration, Intermittent, Less than 6 Hours Per Day (ICD-10-PCS; 2022-07-09)
DX: I71.43 Infrarenal abdominal aortic aneurysm, without rupture (principal); A41.9 Sepsis, unspecified organism; N17.0 Acute kidney failure with tubular necrosis; R65.21 Severe sepsis with septic shock; J96.00 Acute respiratory failure, unspecified whether with hypoxia or hypercapnia; E87.20 Acidosis, unspecified; Z51.5 Encounter for palliative care; E78.5 Hyperlipidemia, unspecified; I73.9 Peripheral vascular disease, unspecified; Z66 Do not resuscitate; E88.09 Other disorders of plasma-protein metabolism, not elsewhere classified; I10 Essential (primary) hypertension; I99.8 Other disorder of circulatory system; Z95.1 Presence of aortocoronary bypass graft; G62.9 Polyneuropathy, unspecified; R23.1 Pallor; R34 Anuria and oliguria; Z79.899 Other long term (current) drug therapy; E87.5 Hyperkalemia
CPT/HCPCS: 36415; 36600; 71045; 71046; 80048; 80053; 82803; 82948; 83605; 83735; 84100; 84478; 85007; 85018; 85025; 85610; 85730; 86885; 86900; 86901; 86920; 87040; 87070; 87081; 87088; 90935; 93005; 94002; 94003; 94760; A4333; A4615; A4618; A6213; A6258; A6402; A6449; A7000; A9900; C1725; C1751; C1752; C1758; C1760; C1769; C1887; C1894; C9113; E1594; G0257; G0378; J0131; J0282; J0360; J0690; J1100; J1644; J2250; J2270; J2405; J2543; J2704; J3010; J3370; J3490; J7030; J7040; J7050; J7060; J7120; P9047; Q9967